=== PATIENT | female | born 1975 | race Caucasian/White ===

== ENCOUNTER 2017-03-04 15:24 | Emergency (ER) | payer SELFPAY ==
--- NOTE | ~2017-03-04 | ER ---
PATIENT'S NAME: MADI HOLMAN [facility] AGE: 41 Y [address] ROOM: [place] [address] LOCATION: [facility] ADMIT DATE: 03/04/2017 ER/Outpatient Report DISCHARGE DATE: 03/04/2017 FAMILY PHYSICIAN: PHYSICIAN, NO ATTENDING PHYSICIAN: Rajesh Baron SEEN AT: 1530 hours. HISTORY OF PRESENT ILLNESS: The patient is a 41-year-old female. Patient of Trevor Venegas. The patient reported a boil to her anterior right thigh. She thought it possibly was a spider bite. Trevor Venegas referred her to the emergency room. The patient has had previous boils in the past. ALLERGIES: PENICILLIN. CURRENT MEDICATIONS: See her copied list. MEDICAL HISTORY: The patient is a dcq-pvxgjpo-bmcdinprx diabetic. She has a history of alcohol, asthma, chronic anxiety. SURGERIES: Include a heart valve replacement. She has had 3 C-sections, a gastric bypass, back surgery, D and C. SOCIAL HISTORY: Smoker, a pack a day. Alcohol daily, at least 4 beers. Chews tobacco. REVIEW OF SYSTEMS: GENERAL: Denies fever or chills today. HEAD/EENT: Negative. GASTROINTESTINAL: No vomiting or change in bowel habits. GENITOURINARY: No dysuria. SKIN: Includes the red and indurated area on her anterior upper thigh. OBJECTIVE FINDINGS: VITAL SIGNS: Blood pressure was 119/77, temperature is 97.5, her respiratory rate 20, pulse 64, O2 sats 97%. GENERAL: The patient alert and oriented. HEAD/EENT: Her sclerae were clear. Buccal membranes were moist. ABDOMEN: Soft, nontender. PATIENT'S NAME: MADI HOLMAN [facility] AGE: 41 Y [address] ROOM: [place], [place] [address] LOCATION: ED ADMIT DATE: 03/04/2017 ER/Outpatient Report DISCHARGE DATE: 03/04/2017 FAMILY PHYSICIAN: PHYSICIAN, NO ATTENDING PHYSICIAN: Rajesh Baron SKIN: On her right upper thigh, there was a hard indurated area about the size of a silver dollar. There was some redness surrounding it. ASSESSMENT: An abscess, possible cellulitis, right upper thigh. PLAN/TREATMENT: The area was anesthetized with 1% Xylocaine. #11 blade was used to stab the boil. The patient did have some moderate pus removed from the abscess. Dressing applied. The patient was started on Bactrim DS 1 b.i.d. Recommend followup if it does not continue to improve over the next 48 hours. MAYURI PEREZ FOR MD AUDRA POE/aamir /[id number] d: 03/04/17 2333 t: 03/14/17 1058, OUTPATIENT REPORT
[2017-03-06] MEDS ORDERED: BACTRIM DS1 TAB PO (10:44)
== END 2017-03-04 15:55 | disposition disaster alternative care site (69) ==
LOC: GMED 15:24
PROC: 0H9HXZZ Drainage of Right Upper Leg Skin, External Approach (ICD-10-PCS; principal; 2017-03-04)
DX: L02.415 Cutaneous abscess of right lower limb (principal); J45.909 Unspecified asthma, uncomplicated; E11.9 Type 2 diabetes mellitus without complications; F41.9 Anxiety disorder, unspecified; F17.210 Nicotine dependence, cigarettes, uncomplicated; Z98.890 Other specified postprocedural states; Z88.0 Allergy status to penicillin